=== PATIENT | male | born 1950 | race Caucasian/White ===

== ENCOUNTER 2019-04-21 11:30 | Emergency (ER) | payer OTHER, MEDICARE ==
--- NOTE | 2019-04-21 11:39 | PDOC ---
History of Present Illness - General Chief Complaint: Constipation Stated Complaint: CONSTIPATION Time Seen by Provider: 04/21/19 11:39 - History of Present Illness Initial Comments: HPI: 68yo M with PMH of rectal polyps and nasal polyps presenting with abdominal "discomfort." Patient's last bowel movement was about five or six days ago. He usually has a bowel movement daily and his last bowel movement on Monday was nonbloody, brown, and not hard. Has never had issues with constipation before. Patient has felt lower abdominal pain rated 7-8/10 since . No nausea or vomiting. Last had a colonoscopy about twenty years ago which did not show abnormal results. Denies history of of abdominal surgeries. Does not currently follow with a GI doctor. While patient states he keeps hydrated, his believes he is poorly hydrated. Patient does not eat a high fiber diet. Denies fevers, chills, chest pain, or shortness of breath. PCP: Dr. Taran Pinzon ROS: Constitutional: no fever, no chills HEENT: no throat pain, no dysphagia Cardiovascular: no chest pain, no palpitations Respiratory: no cough, no shortness of breath Gastrointestinal: +abdominal pain, no nausea Genitourinary: no dysuria, no hematuria Musculoskeletal: no myalgia, no arthralgia Skin: no rash, no itching Neurologic: no headache, no weakness Psych: no agitation, no anxiety PE: General: Awake, alert, and fully oriented, in no acute distress Head: No signs of trauma Eyes: EOMI, sclera anicteric ENT: Moist mucus membranes Neck: Normal ROM, supple Lungs: Lungs clear, Normal breath sounds Cardio: Regular rhythm, S1 and S2 present Abdomen: Tender to palpation in the lower abdomen. Brooke sounds present in all four quadrants. Soft. No guarding, no rebound, no masses. No CVA tenderness. Extremities: Normal range of motion, Distal pulses present SKIN: Warm, Dry, normal turgor Neurologic: Cranial nerves II through XII grossly intact. Normal speech ED Course/MDM: DDX including but not limited to constipation, diverticulitis, colon CA, ACS Labs CTAP with IV and oral contrast 04/21/19 11:39 CBC WBC 8.8 K/mm3 (4.0-10.8) 04/21/19 12:36 RBC 5.06 M/mm3 (4.00-5.60) 04/21/19 12:36 Hgb 15.5 GM/dl (11.7-16.9) 04/21/19 12:36 Hct 45.9 % (35.4-49) 04/21/19 12:36 MCV 90.8 fl (80-96) 04/21/19 12:36 MCH 30.7 pg (25.7-33.7) 04/21/19 12:36 MCHC 33.8 g/dl (32.0-35.9) 04/21/19 12:36 RDW 11.9 % (11.9-15.9) 04/21/19 12:36 Plt Count 250 K/MM3 (134-434) 04/21/19 12:36 MPV 8.5 fl (7.5-11.1) 04/21/19 12:36 Absolute Neuts (auto) 6.0 K/mm3 04/21/19 12:36 Neutrophils % No Result Required. 04/21/19 12:36 Neutrophils % (Manual) 67.0 % (42.8-82.8) 04/21/19 12:36 Band Neutrophils % 2.0 % (0-10) 04/21/19 12:36 Lymphocytes % No Result Required. 04/21/19 12:36 Lymphocytes % (Manual) 20.0 % (8-40) 04/21/19 12:36 Monocytes % (Manual) 8 % (3.8-10.2) 04/21/19 12:36 Eosinophils % (Manual) 3.0 % (0-4.5) 04/21/19 12:36 Platelet Estimate Adequate 04/21/19 12:36 Platelet Comment Rare giant plts 04/21/19 12:36 No leukocytosis CMP Sodium 135 mmol/L (136-145) L 04/21/19 12:36 Potassium 4.2 mmol/L (3.5-5.1) 04/21/19 12:36 Chloride 101 mmol/L (98-107) 04/21/19 12:36 Carbon Dioxide 25 mmol/L (21-32) 04/21/19 12:36 Anion Gap 9 MMOL/L (8-16) 04/21/19 12:36 BUN 17.0 mg/dl (7-18) 04/21/19 12:36 Creatinine 0.8 mg/dl (0.55-1.3) 04/21/19 12:36 Est GFR (CKD-EPI)AfAm 104.90 04/21/19 12:36 Est GFR (CKD-EPI)NonAf 90.51 04/21/19 12:36 Random Glucose 108 mg/dl (74-106) H 04/21/19 12:36 Calcium 8.8 mg/dl (8.5-10) 04/21/19 12:36 Total Bilirubin 0.9 mg/dl (0.2-1) 04/21/19 12:36 AST 21 U/L (15-37) 04/21/19 12:36 ALT 27 U/L (13-61) 04/21/19 12:36 Alkaline Phosphatase 64 U/L (45-117) 04/21/19 12:36 Creatine Kinase 71 U/L (26-308) 04/21/19 12:36 Troponin I < 0.03 ng/ml (0.00-0.05) 04/21/19 12:36 Total Protein 6.6 g/dl (6.4-8.2) 04/21/19 12:36 Albumin 3.4 g/dl (3.4-5.0) 04/21/19 12:36 Electrolytes unremarkable Cr normal No transaminitis Tpn undetectable CT AP with acute sigmoid diverticulitis Will cover with Levaquin and Flagyl Patient to follow up with PCP and referral to GI Return precautions Stable for discharge 04/21/19 14:56 Past History - Past Medical History Allergies/Adverse Reactions: Allergies Allergy/AdvReac Type Severity Reaction Status Date / Time No Known Allergies Allergy Verified 04/21/19 11:39 Home Medications: Ambulatory Orders Metronidazole 500 mg PO TID #30 tablet 04/21/19 levoFLOXacin [Levaquin] 750 mg PO DAILY #10 tab 04/21/19 ED Treatment Course - LABORATORY CBC & Chemistry Diagram: 04/21/19 12:36 04/21/19 12:36 Discharge - Discharge Information Problems reviewed: Yes Clinical Impression/Diagnosis: Acute diverticulitis Condition: Stable Disposition: HOME - Additional Discharge Information Prescriptions: levoFLOXacin [Levaquin] 750 mg PO DAILY #10 tab Metronidazole 500 mg PO TID #30 tablet - Follow up/Referral Referrals: Taran Pinzon [Primary Care Provider] - Adal Parada MD [Staff Physician] - Cassius Wyatt MD [Staff Physician] - - Patient Discharge Instructions Patient Printed Discharge Instructions: DI for Diverticulitis Additional Instructions: You came to the emergency department for abdominal pain. Antibiotics prescriptions sent to your pharmacy. Take as instructed Follow up with your primary care physician in 2-3 days. We have also referred you to a GI doctor for a follow-up colonoscopy after treatment to confirm no underlying lesion. Call and make an appointment at the number provided. Your workup is not complete until you do so. Immediate medical attention is required if you have: high fevers, severe pain, intractable vomiting, are unable to take your antibiotics, or develop any new or concerning symptoms. If you think you are having an emergency, call for emergency medical services or present to the emergency department right away. - Post Discharge Activity
--- NOTE | 2019-04-21 11:48 | PDOC ---
Attending Attestation - Resident Resident Name: Heidi Castaneda - ED Attending Attestation I have performed the following: I have examined & evaluated the patient, The case was reviewed & discussed with the resident, I agree w/resident's findings & plan, Exceptions are as noted - HPI HPI: 68 yo M no significant PMH presents with constipation for past 6 days. C/o lower abdominal pain. No prior similar symptoms in the past. Denies N/V, f/c. No recent dietary changes. Typically he has a BM every day, this is a change in his pattern. - Physicial Exam PE: GENERAL: Awake, alert, and fully oriented, in no acute distress HEAD: No signs of trauma EYES: PERRLA, EOMI, sclera anicteric, conjunctiva clear ENT: Auricles normal inspection, hearing grossly normal, nares patent, oropharynx clear without exudates. Moist mucosa NECK: Normal ROM, supple, no lymphadenopathy, JVD, or masses LUNGS: Breath sounds equal, clear to auscultation bilaterally. No wheezes, and no crackles HEART: Regular rate and rhythm, normal S1 and S2, no murmurs, rubs or gallops ABDOMEN: Soft, +BLQ tenderness, worse in LLQ. +Hypoactive bowel sounds. + Guarding, no rebound. No masses EXTREMITIES: Normal range of motion, no edema. No clubbing or cyanosis. No cords, erythema, or tenderness NEUROLOGICAL: Cranial nerves II through XII grossly intact. Normal speech, normal gait. Motor and sensation intact SKIN: Warm, dry, normal turgor, no rashes or lesions noted. - Medical Decision Making Given the change in his bowel habits in addition to the lower abdominal tenderness, suspect this may be diverticulitis, however, it may be diet-related constipation, as he does not eat much fiber. Will obtain CT a/p. No signs of acute abdomen. 04/21/19 15:07 CT positive for uncomplicated diverticulitis. Pt is stable for DC with home PO antibiotics, as he is otherwise well, tolerating PO.
[2019-04-21 11:58] VITALS: BP 170/97; PULSE 66; TEMP 97.6; BMI 30.7
[2019-04-21 12:55] LABS: HEMATOCRIT 45.9 % (35.4-49); HEMOGLOBIN 15.5 GM/dl (11.7-16.9); MCH 30.7 pg (25.7-33.7); MCHC 33.8 g/dl (32.0-35.9); MEAN CELL VOLUME 90.8 fl (80-96); MEAN PLT VOLUME 8.5 fl (7.5-11.1); PLATELET COUNT 250 K/MM3 (134-434); RBC 5.06 M/mm3 (4.00-5.60); RDW 11.9 % (11.9-15.9); WHITE BLOOD COUNT 8.8 K/mm3 (4.0-10.8)
[2019-04-21 13:02] LABS: ALBUMIN 3.4 g/dl (3.4-5.0); BILIRUBIN,TOTAL 0.9 mg/dl (0.2-1); CALCIUM 8.8 mg/dl (8.5-10); CREATININE 0.8 mg/dl (0.55-1.3); POTASSIUM 4.2 mmol/L (3.5-5.1); TOT PROT 6.6 g/dl (6.4-8.2)
[2019-04-21 14:13] LABS: PLATELET ESTIMATE ADEQUATE
[2019-04-21] MEDS ORDERED: metroNIDAZOLE 250 MG TABLET PO ONE (14:55)
[2019-04-21] MEDS ORDERED: metroNIDAZOLE 250 MG TABLET ONE (15:05)
== END 2019-04-21 15:21 | disposition home or self-care (01) ==
LOC: FER 11:30
DX: K57.92 Diverticulitis of intestine, part unspecified, without perforation or abscess without bleeding (principal); D12.6 Benign neoplasm of colon, unspecified
CPT/HCPCS: 36415; 74177-TC; 80053; 82550; 84484; 85025; 99285-25

== ENCOUNTER 2023-03-25 13:48 | Emergency (ER) | payer MEDICARE, OTHER ==
[2023-03-25 14:18] VITALS: PULSE 60; TEMP 97.8; BMI 29.9
[2023-03-25 15:18] VITALS: BP 168/86; RESP 16
== END 2023-03-25 15:18 | disposition home or self-care (01) ==
LOC: FER 13:48
DX: S63.501A Unspecified sprain of right wrist, initial encounter (principal); M25.531 Pain in right wrist; W01.0XXA Fall on same level from slipping, tripping and stumbling without subsequent striking against object, initial encounter; Y93.01 Activity, walking, marching and hiking; Y92.009 Unspecified place in unspecified non-institutional (private) residence as the place of occurrence of the external cause
CPT/HCPCS: 73110-TC-RT-FY; 73130-TC-RT-FY; 99283-25

== ENCOUNTER 2024-03-21 17:24 | Emergency (ER) | payer OTHER ==
[2024-03-21 17:44] VITALS: BP 159/83; PULSE 72; RESP 17; TEMP 97.3; BMI 31.4
[2024-03-21] MEDS ORDERED: ACETAMINOPHEN 325 MG TABLET (FP) ONE (17:46)
[2024-03-21] MEDS: ACETAMINOPHEN 325 MG TABLET (FP) PO ONE (17:49)
== END 2024-03-21 18:59 | disposition home or self-care (01) ==
LOC: FER 17:24
DX: S93.402A Sprain of unspecified ligament of left ankle, initial encounter (principal); X50.1XXA Overexertion from prolonged static or awkward postures, initial encounter
CPT/HCPCS: 73610-TC-LT-FY; 73630-TC-LT; 99283-25